=== PATIENT | female | born 1950 | race Caucasian/White ===

== ENCOUNTER → 2016-07-24 | Outpatient (CLI) | payer MEDICARE, OTHER ==
[~2016-07-24] MED LIST: ACCUPRIL10 MG PO; BUPROPION XL150 MG PO; CALCIUM WITH V1 EAC1 PO; DILAUDID 2MG(HYD2 MG PO; GLUCOPHAGE500 MG PO; HYDROCHLOROTHIA25 MG PO; IRON65 PO; MELATIN3 MG PO; MULTIVITAMINS1 EAC2 PO; VALACYCLOVIR500 MG PO; VITAMIN D32000 UNIT PO; XARELTO10 MG PO; [UNRECOGNIZED DRUG - OTHER] PO
--- NOTE | 2016-07-24 15:40 | NUR ---
Pre-op Clinic Note - patient here with her friend. She lives in [place]. Plan is home following discharge. Her sister will be coming to stay with her. She has had both knees done previously. She also has friends, neighbors, children and restoration community that will be around to assist her. She has no advanced directive unless [facility] would have something on record. She has Medicare and a supplemental. [facility] . Surgery is August 03. She has 3 steps to get inside her home. Once inside everything she will need is on the main level, will not need to go into the basement. She has a walker, has rented a wheelchair from [employer], has a built in shower chair, and a tall toilet. No anticipated discharge needs. Went over typical lenght of stay 2-3 days.
== END | disposition disaster alternative care site (69) ==
LOC: EDSTATUS 13:30 → GPOC 13:58
DX: Z01.812 Encounter for preprocedural laboratory examination (principal); Z96.652 Presence of left artificial knee joint

== ENCOUNTER 2016-08-03 05:08 | Inpatient (IN) | payer MEDICARE, OTHER ==
[~2016-08-03] VITALS: Ht 167.6 cm; Wt 88.9 kg
--- NOTE | ~2016-08-03 | DS ---
PATIENT'S NAME: JAYASHREE ROMERO [facility] AGE: 66 Y [address] 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 SECONDARY DIAGNOSIS: No significant secondary diagnosis. PROCEDURE PERFORMED: Revision of left total knee arthroplasty (revision of entire femoral component, extensive synovectomy, and tibial polyethylene wear exchange). HISTORY: The patient is a 66-year-old female, who presents with chronic progressive left knee pain. She is status post primary left total knee arthroplasty with Dr. Encarnacion in February 2008. The patient decided to proceed with revision total hip replacement after having been thoroughly counseled regarding the risks, benefits, limitations, and alternatives. Please refer to her outpatient clinic notes and her admission history and physical. HOSPITAL COURSE: The patient underwent the above specified procedure on 08/03/2016 without complications. Spinal anesthesia plus periarticular local anesthesia was utilized. She received 72 hours of perioperative prophylactic antibiotics. Antibiotics were discontinued on postop day #3 when cultures of synovial fluid taken at the time of surgery were negative. She remained hemodynamically stable and neurovascularly intact throughout her entire hospital course. Her postoperative deep venous thrombosis prophylaxis consisted of Xarelto, early mobilization, and pneumatic compression devices. She received daily physical therapy for gait training, transfer training, and progressed well in physical therapy. On the date of discharge, incision of the knee was healing well and showed no signs of infection. DISPOSITION: Home. DISCHARGE DIET: Regular. DISCHARGE ACTIVITY: She is to bear weight as tolerated. She is to notify Dr. Wray immediately if she experiences increased pain, fevers, chills, erythema, or drainage. DISCHARGE MEDICATIONS: 1. Xarelto 10 mg, take one tab p.o. daily for DVT prevention. 2. Dilaudid 2 mg, take one tablet p.o. every 4 hours as needed for pain. PATIENT'S NAME: JAYASHREE ROMERO [facility] AGE: 66 Y [address] ROOM: [place] [address] LOCATION: [facility] ADMIT DATE: 08/03/2016 Discharge Summary DISCHARGE DATE: 08/05/2016 FAMILY PHYSICIAN: Niharika Tipton MD ATTENDING PHYSICIAN: Martha Wray 3. She has been instructed to continue all of her other preadmission medications as instructed by her Internal Medicine physician. FOLLOWUP: Followup date is to be one week subsequent to dismissal from the hospital with Dr. Wray for her initial postoperative evaluation and x-rays at that time. GLENDY WASSERMAN FOR MARTHA WRAY MD TLB/modl /[id number] d: 08/16/16 0405 t: 09/03/16 0926, DISCHARGE SUMMARY
--- NOTE | ~2016-08-03 | OR ---
PATIENT'S NAME: JAYASHREE LEON [facility] AGE: 66 Y [address] ROOM: [place] [address] LOCATION: [facility] ADMIT DATE: 08/03/2016 OR/Procedure Report DISCHARGE DATE: FAMILY PHYSICIAN: Niharika Tipton MD ATTENDING PHYSICIAN: MARTHA WRAY SURGEON: Martha Wray MD [employer]TIQUE [employer]UM MAINTENANCE WORKER: Sameer George and Martha Contreras. 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 Well-fixed tibial, femoral, and patellar components. PROCEDURE PERFORMED: Revision of left total knee arthroplasty (revision of entire femoral component, extensive synovectomy, and tibial polyethylene exchange). ANESTHESIA: Spinal anesthesia plus periarticular local anesthesia (ropivacaine with epinephrine and Toradol). ESTIMATED BLOOD LOSS: Less than 10 mL. TOURNIQUET TIME: 2 hours. EXPLANTS: Wanda posterior cruciate ligament retaining femoral component and fractured tibial polyethylene insert. IMPLANTS: Wanda NextGen Legacy constrained condylar femoral component (size B). A 5 mm distal, medial femoral augment. 5 mm distal lateral femoral augment. 13 mm x 60 mm cemented femoral stem. 17 mm posterior stabilized tibial polyethylene insert with locking screw. SPECIMEN: Synovial fluid for cell count and Gram stain and routine culture. INDICATION FOR PROCEDURE: Ms Leon is a 66-year-old female, who presents with chronic progressive left knee pain. She is status post primary left total knee arthroplasty with Dr. Encarnacion in February 2008. She has never been satisfied with the knee. She has struggled with chronic stiffness and discomfort. Her discomfort has escalated significantly over the last 6 months. Preoperative radiographs demonstrate anterior subluxation of the tibia, severe thinning of the lateral tibial polyethylene insert, and well- PATIENT'S NAME: JAYASHREE LEON [facility] AGE: 66 Y [address] ROOM: [place] [address] LOCATION: [facility] ADMIT DATE: 08/03/2016 OR/Procedure Report DISCHARGE DATE: FAMILY PHYSICIAN: Niharika Tpiton MD ATTENDING PHYSICIAN: MARTHA WRAY fixed components. Risks, benefits, limitations, and alternatives to this procedure have been thoroughly reviewed, and informed consent has been granted. We have specifically reviewed risks and implications of infection, stiffness, deep venous thrombosis, pulmonary embolism, neurovascular complications, blood transfusion risks, and potential need for revision. Informed consent has been granted. DESCRIPTION OF PROCEDURE: The patient was positioned supine after administration of regional anesthesia and prophylactic antibiotics. A well- padded pneumatic tourniquet was placed around her left proximal thigh. The left lower extremity was prepped and draped with vigilant sterile technique. Examination under anesthesia demonstrated no active skin lesions or masses. There was no erythema. There was a moderate effusion. There was a well- healed longitudinal midline scar. Range of motion was from full extension to 115 degrees of flexion. The left lower extremity was prepped and draped with vigilant sterile technique. The left lower extremity was elevated and exsanguinated with an Esmarch wrap, and the knee pneumatic tourniquet was inflated to 300 mmHg. The left knee was approached through a longitudinal midline incision incorporating the pre-existing scar. A medial parapatellar arthrotomy was performed. There was diffusely blackened discoloration of the synovium (consistent with metal on metal wear). The patella component was a well- fixed, and there was no significant wear of the patella polyethylene. An extensive synovectomy was performed. All 3 components were confirmed to be well-fixed and well-aligned. The posterior cruciate ligament was excised as a portion of the synovectomy. The tibial polyethylene liner was removed. There were several small fragments of fractured polyethylene encountered during the synovectomy. There was a single 1 cm x 5 mm x 4 mm fragment of polyethylene at the posterior aspect of the lateral compartment. There was a burnishing of the lateral femoral condyle portion of the femoral component. This portion of the femoral component had been articulating with the posterior lateral aspect of the tibial tray. There was severe wear of the posterior half of the lateral tibial polyethylene insert. Probably, there was no significant damage to the peripheral rim of the posterolateral aspect of the tibial tray. There were significant osteolysis of the posterior lateral and posterior medial aspects of the femoral condyles. Osteolytic debris was debrided from both of these regions after extraction of the femoral component. The femoral component was extracted with virtually no bone, attached. The distal femoral resection was performed at 5 degrees of valgus referenced PATIENT'S NAME: JAYASHREE LEON [facility] AGE: 66 Y [address] ROOM: [id number] [place], [place] [address] LOCATION: [facility] ADMIT DATE: 08/03/2016 OR/Procedure Report DISCHARGE DATE: FAMILY PHYSICIAN: Niharika Tipton MD ATTENDING PHYSICIAN: MARTHA WRAY off an intramedullary guide. Approximately, 5 mm of distal femoral bone was resected in order to get down to decent bone. External rotation of the anterior and posterior femoral resections were set appropriately. The posterior portion of the synovectomy was completed after the box cut was made. Trial reductions were performed, and the above-specified construct yielded good range of motion and excellent stability. Patellar tracking was optimal. Trial components were removed. A cement restrictor (size medium Yvonne restrictor) was placed to the appropriate depth. The femoral component was cemented using [employer] Simplex cement containing premixed tobramycin. All excess cement was removed. When the cement had hardened, the final tibial polyethylene insert was placed, and the set screw was deployed with the torque- limiting wrench. Final range of motion was from full extension to 130 degrees of flexion. There was excellent anteroposterior stability at 90 degrees of flexion. There was no varus or valgus laxity. Patellar tracking was optimal. The entire joint space and incision were thoroughly irrigated with bacteriostatic pulsatile saline lavage at this point as well as several times throughout the case. The arthrotomy was closed with multiple simple interrupted #1 Vicryl sutures. The incision was closed with simple deep interrupted 0 Vicryl, followed by superficial buried interrupted 2-0 Vicryl, followed by surgical douglas. The dressing consisted of Xeroform gauze, sterile gauze, ABD pads, and an Osman wrap. There were no complications. MD YOGESH OLEARY/halle /[id number] d: 08/04/16 1005 t: 08/19/16 2141, OPERATIVE SUMMARY
--- NOTE | ~2016-08-03 | OR ---
PATIENT'S NAME: JAYASHREE ROMERO [facility] AGE: 66 Y [address] ROOM: [facility] [place] [place] [place], [place] [address] LOCATION: [facility] ADMIT DATE: 08/03/2016 OR/Procedure Report DISCHARGE DATE: 08/05/2016 FAMILY PHYSICIAN: Niharika Tipton MD ATTENDING PHYSICIAN: Leonardo Cisneros SURGEON: Leonardo Cisneros MD PRESCHOOL DISABILITY TEACHER: DATE OF PROCEDURE: 08/03/2016 ADDENDUM: It should be noted that the physician's recruitment and outreach assistant played an active, integral role throughout this entire operation. By providing expert retraction, they greatly facilitated and expedited safe and effective exposure of the distal femur, proximal tibia and patella for preparation and implantation of the components. They were also actively involved in the patient's positioning, prepping and draping, as well as wound closure. MD YOGESH OLEARY/halle /[id number] d: 08/30/16 0341 t: 09/03/16 0923, OPERATIVE SUMMARY
[~2016-08-03 05:08] MED LIST changes: -DILAUDID 2MG(HYD2 MG PO; -XARELTO10 MG PO
--- NOTE | 2016-08-03 15:52 | NUR ---
Significant Event: Came up from PACU at 1115. AOx3. VSS. CSM WNL. Up in chair. 1 assist with walker. Dressing is C/D/I. Ezwrap applied. LR running at 80ml/hr. Has voided x1 per commode. Accuchecks. Follow up:
--- NOTE | 2016-08-04 05:20 | NUR ---
Significant Event: Alert/oriented x3. 1 assist ambulation. EZ wrap. Bilateral foot pumps. Voids well per bathroom, 1 void your credit. Mepilex dressing C/D/I. Staci , HS - 1830 - 202 - 2 units Novolog, HS - 207 - 2 units Novolog. VSS. CSM WNL. Saline lock left wrist. Toradol scheduled at 0900. Dilaudid 2 mg at 1928, 2127, 0119, 0436; Dilaudid IVP at 1928, 2315. Follow up:
[2016-08-04 06:38] LABS: HEMATOCRIT 37.7 % (33.0-46.0); HEMOGLOBIN 12.7 g/dL (10.0-15.0)
--- NOTE | 2016-08-04 18:10 | NUR ---
Significant Event: A/O x3. HRs 60s, SBPs 130s, afebrile. O2 remains >90% on RA. Voiding moderatley, no BM today, good appetite. Transfer 1-assist while walking, requested to walk in canales 3 times today. IV L) writst saline locked. Accuchecks 127, 149 did not give insulin. Family updated and supportive at the bedside. Follow up:
--- NOTE | 2016-08-05 03:44 | NUR ---
Significant Event: Alert/oriented x3. Plans to go home today. EZ wrap to left knee. Bilateral foot pumps. Ramin hose removed at HS. Dressing C/D/I. Pain controlled effectively with Dilaudid IVP at 1901; Dilaudid 2 mg po at 1909, Dilaudid 4 mg po at 2343. Saline lock in left posterior forearm. VSS. CSM WNL. 1 assist ambulation. Voids well to bathroom. Follow up:
[2016-08-05] MEDS ORDERED: DILAUDID 2MG(HYD2 MG PO (10:44)
[2016-08-05] MEDS ORDERED: XARELTO10 MG PO (10:50)
== END 2016-08-05 11:45 | disposition disaster alternative care site (69) | DRG 468 ==
LOC: G3N 05:08
PROVIDERS: ADMIT Orthopaedic Surgery
PROC: 0SPU0JZ Removal of Synthetic Substitute from Left Knee Joint, Femoral Surface, Open Approach (ICD-10-PCS; principal; 2016-08-03)
PROC: 0SRU0J9 Replacement of Left Knee Joint, Femoral Surface with Synthetic Substitute, Cemented, Open Approach (ICD-10-PCS; principal; 2016-08-03)
PROC: 0SPD09Z Removal of Liner from Left Knee Joint, Open Approach (ICD-10-PCS; principal; 2016-08-03)
PROC: 0SUW09Z Supplement Left Knee Joint, Tibial Surface with Liner, Open Approach (ICD-10-PCS; principal; 2016-08-03)
DX: T84.033A Mechanical loosening of internal left knee prosthetic joint, initial encounter (principal); I10 Essential (primary) hypertension; R01.1 Cardiac murmur, unspecified; E11.9 Type 2 diabetes mellitus without complications; F32.9 Major depressive disorder, single episode, unspecified; Z96.651 Presence of right artificial knee joint; Z79.84 Long term (current) use of oral hypoglycemic drugs
CPT/HCPCS: C1713; C1776; J0690; J1170; J1885; J2001; J2250; J2795; J3370; J7030; J7050; J7120